=== PATIENT | female | born 1965 | race Caucasian/White ===

== ENCOUNTER 2018-06-06 09:43 | Day surgery (SDC) | payer OTHER ==
[2018-06-06] MEDS ORDERED: DIPRIVAN 10 MG/ML IV ONE ×3 (10:26→10:27)
[2018-06-06] MEDS ORDERED: NACL 0.9% 1000 ML 1,000 ML IV SCH (11:00)
--- NOTE | 2018-06-06 11:17 | Operative Report ---
Operative Report Operative Report: Date of procedure: 06/06/2018 Procedure: Colonoscopy with Multiple Hot Biopsy Polypectomies, Polyp Ablation. Attending physician: Ramo Stephenson MD Bumboater: Ramo Stephenson MD Indication: Patient is a 52-year-old female who presents for screening colonoscopy. This colonoscopy serves to evaluate patient so that treatment may be directed based on the findings. Consent: Informed consent was obtained after advising the patient and family regarding nature of this procedure, its indications, potential benefits as well as possible complications including but not limited to bleeding perforation and adverse reaction to medication, infection as well as other cardiopulmonary complications. An informed written and verbal consent was then obtained after due opportunity was provided for questions and answers. Monitoring: Patient was monitored continuously with pulse oximetry and electrocardiographic recordings as well as blood pressure recordings. Vital signs remained stable throughout this procedure with no untoward events. Preoperative assessment: Patient was assessed immediately prior to this procedure for capacity to tolerate monitored anesthesia care and moderate sedation as well as general anesthesia. Patient's ASA classification is 2, Mallampati class is 2, Hyomental distance is 3. Instrument: [id number] video colonoscope Medications: Propofol given intravenously in divided doses. For details please refer to anesthesia records. Description of procedure: Patient was placed in the left lateral decubitus position after achieving sedation, a digital rectal examination was performed following which the colonoscope was introduced into the anal verge and advanced to the cecum which was identified by the cecal valve, the appendiceal orifice, as well as by the cecal strap and direct transillumination. The colonoscope was subsequently withdrawn with careful inspection of all mucosal surfaces. Patient tolerated this procedure well and was subsequently taken to the recovery room. The following findings were noted. Findings: Patient had 2 diminutive flat polyps in the ascending colon which measured 3-4 mm. These polyps were removed by hot biopsy polypectomy. There was a diminutive flat polyp in the cecum which was ablated. The rest of the colon to the cecum was normal. On the retroflex view at the anal verge, patient had internal hemorrhoids. Impression: Multiple diminutive ascending colon polyp status post hot biopsy polypectomy. Diminutive cecal polyp status post ablation Internal hemorrhoids. Plan: Follow pathology report. High-fiber diet. Repeat colonoscopy in 5 years if polyps are adenomatous.
--- NOTE | 2018-06-06 11:18 | Discharge Summary ---
Short Stay Discharge Plan Activity: advance as tolerated Weight Bearing Status: Weight Bear as Tolerated Diet: regular Follow up with: ERWIN ROBERTS MD [Primary Care Provider] - 7 Days
[2018-06-06 11:39] VITALS: BP 116/66
[2018-06-06] MEDS ORDERED: ZOFRAN ONE (15:00)
== END 2018-06-06 09:44 | disposition home or self-care (01) ==
LOC: GIO 09:43
PROVIDERS: ATTEND Internal Medicine Gastroenterology
DX: D12.2 Benign neoplasm of ascending colon (principal); K64.8 Other hemorrhoids; K59.00 Constipation, unspecified; K63.5 Polyp of colon; K21.0 Gastro-esophageal reflux disease with esophagitis; G47.30 Sleep apnea, unspecified; M06.9 Rheumatoid arthritis, unspecified; E66.9 Obesity, unspecified; Z68.37 Body mass index [BMI] 37.0-37.9, adult; Z98.891 History of uterine scar from previous surgery; Z90.49 Acquired absence of other specified parts of digestive tract; Z79.899 Other long term (current) drug therapy; Z98.890 Other specified postprocedural states
CPT/HCPCS: 45384; 45388; 81025; 88305; J2405; J2704; J7030